=== PATIENT | female | born 1955 | race Caucasian/White ===

== ENCOUNTER 2019-05-04 11:51 | Inpatient (IN) ==
--- NOTE | 2019-05-04 12:44 | Emergency Department Note ---
ED Disposition Clinical Impression: Mesenteric ischemia Disposition: Admitted as Observation Condition on Discharge: Fair Instructions: DI for Nausea -- Adult, Nausea and Vomiting-Adult Additional Instructions: I discussed her CT findings with her primary care doctor Dr. Mackenzie Barrios and [facility] and Dr. Barrios tells me that this lady has been steadily going downhill over the last 5 to 6 months she has been seen by GI and had 2 EGDs and 2 colonoscopies that were non-diagnostic she has been getting sick every time she eats and having abdominal pain and now she comes to our emergency room with a lactic acid of 4.6 a white count of 15,[address] scan with IV contrast that shows narrowing of the ostium of the superior mesenteric artery and the celiac artery and she also has some evidence of colitis and this could be mesenteric i schemisaac I discussed this with Dr. Weinberg vascular surgeon at the [facility] in the [facility] is on diversion at this time and has 69 bedders in their emergency room Dr. Weinberg suggested that we try to get her admitted to this facility to get further hydration and if at any time during that process her abdominal pain gets worse they can transfer her to [facility] emergently for further evaluation from a vascular standpoint however if she gets better with hydration and antibiotics for this nonspecific colitis they may be able to avert or avoid any surgical intervention at this time Dr. Duffy is on line csr here for unassigned patients and he is admitting this patient for mesenteric ischemia and a consult has been placed with Dr. Griffin he agrees that this may very well be mesenteric ischemia but recommends going ahead and heparinizing the patient bolusing her with IV fluids and if she is better in the morning he may attempt to do a standing of her superior mesenteric artery Referrals: Mackenzie Barrios MD [Primary Care Provider] - Time of Disposition: 18:11 - Critical Care Critical Care Time: No Attestation: On 05/04/19, the high probability of a clinically significant, sudden or life threatening deterioration of the following system(s) required my full and direct attention, intervention and personal management. The time I documented below is in addition to time spent performing reported procedures but includes the following listed in this critical care notation. Medical Decision Making - Medical Records Medical records reviewed: Yes: I reviewed the patient's medical records. - Wilmer Inquiry Pt receiving controlled substance: No Wilmer was queried for this patient: No Vital Signs: 05/04/19 12:10 05/04/19 12:56 05/04/19 15:51 Temperature 97.6 F Temperature Source Oral Pulse Rate [Left Radial] 85 101 H 99 H Respiratory Rate 16 Blood Pressure [Right Arm] 151/75 H 139/69 139/79 Blood Pressure Mean [Right Arm] 100 92 99 Blood Pressure Source [Right Arm] Automatic Cuff Blood Pressure Position [Right Arm] Sitting Sitting Sitting 02 Sat by Pulse Oximetry 98 100 Oxygen Delivery Method Room Air - Lab Data Lab results reviewed: Yes: I reviewed the patient's lab results. Lab Results 05/04/19 13:07: WBC 15.1 H, RBC 4.47, Hgb 14.3, Hct 42.4, MCV 94.7, MCH 32.1 H, MCHC 33.8, RDW 14.1, Plt Count 349, MPV 8.1, Neut % (Auto) 88.8 H, Lymph % (Auto) 8.2 L, [place] % (Auto) 2.6, Eos % (Auto) 0.2, Baso % (Auto) 0.2, Neut # (Auto) 13.4 H, Lymph # (Auto) 1.2, [place] # (Auto) 0.4, Eos # (Auto) 0.0, Baso # (Auto) 0.0, Total Counted 100, Neutrophils % (Manual) 87 H, Band Neutrophils % 1.0, Lymphocytes % (Manual) 7 L, Monocytes % (Manual) 5, Platelet Estimate Normal, Poikilocytosis 1+, Acanthocytes (Spur) 1+ 05/04/19 13:40: Sodium 139, Potassium 3.1 L, Chloride 99, Carbon Dioxide 20 L, Anion Gap 23.1 H, BUN 5 L, Creatinine 1.11 H, Estimated Creat Clear 44, Es timated GFR 49 L, Est GFR ( Amer) 60, Glucose 59 L, Calcium 9.0, Total Bilirubin 0.7, AST 31, ALT 11 L, Alkaline Phosphatase 100, Total Protein 5.8 L, Albumin 2.7 L, Globulin 3.1, Albumin/Globulin Ratio 0.9 L 05/04/19 14:58: Lactate 4.6 H Result diagrams: 05/04/19 13:07 05/04/19 13:40 Orders (Tests/Meds): ED MEDICATIONS Generic Name Dose Route Start Last Admin Trade Name Freq PRN Reason Stop Dose Admin Sodium Chloride 620 mls @ 999 mls/hr 05/04/19 16:00 05/04/19 15:50 Sod Chlor 0.9% 1000ml Bag IV 05/04/19 16:37 999 mls/hr .Q38M BEV Administration Metronidazole 250 mg in 50 mls @ 100 mls/hr 05/04/19 17:55 05/04/19 18:09 Flagyl 250mg/50ml Ivpb IV 05/04/19 18:24 100 mls/hr ONCE ONE Administration Protocol Discontinued Medications Generic Name Dose Route Start Last Admin Trade Name Freq PRN Reason Stop Dose Admin Diatrizoate Meglum/Diatrizoate Sod 30 ml 05/04/19 12:38 05/04/19 13:32 Gastrografin 66%-10% 30ml PO 05/04/19 12:39 Not Given ONCE ONE Lactated Ringer's 1,000 mls @ 999 mls/hr 05/04/19 12:45 05/04/19 14:17 Lactated Ringer's 1000 Ml Bag IV 05/04/19 13:45 999 mls/hr .Q1H1M BEV Administration Ioversol 75 ml 05/04/19 15:32 05/04/19 15:33 Rad-Optiray 350 100ml Vial IV 05/04/19 15:33 75 ml ONCE ONE Administration Protocol ORDERS Category Date Time Status PT INR [Prothrombin Time INR] Stat Lab 05/04/19 18:05 Ordered PTT [Activated Partial Thrombo Time] Stat Lab 05/04/19 18:05 Ordered Urinalysis and Microscopic Stat Lab 05/04/19 12:30 Ordered - CT Data CT Scan: Abdomen, Pelvis Time Received: 16:[address] Reviewed: Yes: I have reviewed the patient's CT results, I discussed the CT results w/the radiologist, I have viewed the radiologist's interpretation Findings Narrative: IMPRESSION: 1. Hypodensity in the left hepatic lobe possibly due to focal fatty infiltration versus a liver lesion. Nonemergent MRI without and with contrast with in and out of phase imaging suggested for further evaluation. 2. Indeterminate left adrenal nodule which may also be better evaluated with MRI. 3. Left nephrolithiasis. 4. 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 The degree of stenosis is difficult to quantitate due to calcific plaque 5. Mild thickening of the colon which may be due to nondistention or mild colitis Abdominal Pain HPI - General Chief Complaint: Nausea/Vomiting/Diarrhea Stated Complaint: can't keep anything down,vomiting Time Seen by Provider: 05/04/19 12:22 Mode of Arrival: Ambulatory Limitations: No Limitations Description of Symptoms (Recalled from ER Triage Doc. by RN): to ed per pvt car with c/o generalized weakness, fatique, nausea, vomiting x 4-5 months pt states she had gallbladder removed 1 year ago and has had problems since. she has been seen several times in ed at [place] last was yesterday. seen pcp today told to come to ed. pt has been seen by [facility] tuesday. pt has had several "normal" edgs. pt states of a 50-60lb weight loss in 3-4 months. pt denies fever, chills, abd pain. - History of Present Illness HPI narrative: Patient is a 43-year-old white female who comes to the emergency room with compl aints of nausea vomiting abdominal pain decreased appetite and a weight loss of somewhere around 40 pounds over the last 4 to 5 months she says she has had an EGD and a colonoscopy done recently which were reportedly normal but she continues continues to have problems with not being able to eat and not able to keep anything down MD complaint: abdominal pain Onset (ago): month(s) Consistency: constant Location: diffuse - Related Data Allergies Allergy/AdvReac Type Severity Reaction Status Date / Time CODEINE Allergy Unknown NA-NAUSEA/V Uncoded 05/10/17 14:52 OMITING From BACTRIM Allergy Unknown NA-NAUSEA/V Uncoded 05/10/17 14:52 OMITING From MOTRIN Allergy Unknown NA-NAUSEA/V Uncoded 05/10/17 14:52 OMITING [facility] History - Hepatitis A Screen Drug use history?: No High risk sexual behaviors?: No History of sexually transmitted infection?: No Currently employed?: No Childcare worker?: No Do you have indoor plumbing?: Yes Do you have electricity?: Yes Attestation statement:: This patient has been screened for Hepatitis A risk factors. I have reviewed the patient's past medical history: Yes - Social History Smoking Status: Current every day smoker Tobacco Type: cigarettes # Packs/Day (cigarettes): 1 Alcohol Intake: never Occupational Status: other ROS Obtained: Yes All systems reviewed & no additional complaints - Constitutional Constitutional: Reports system reviewed and no additional complaints, except as docu, Reports as per HPI - Eyes Eyes: Reports system reviewed and no additional complaints, except as docu, Reports as per HPI - Gastrointestinal Gastrointestingal: Reports: system reviewed and no additional complaints, except as docu, as per HPI, nausea - Neurologic Neurologic: Reports system reviewed and no additional complaints, except as docu, Reports as per HPI Physical Exam - General General appearance: alert, in no apparent distress - Head Head exam: atraumatic - Eye Eye exam: Present: normal appearance - ENT ENT exam: Present: normal exam, mucous membranes dry - Neck Neck exam: Present: normal inspection - Chest Chest inspection: Present: normal inspection - Respiratory Respiratory exam: Present: normal lung sounds bilaterally - Cardiovascular Cardiovascular exam: Present: regular rate - Abdominal Exam Abdominal exam: Present: soft, tenderness (More in the suprapubic area), diminished bowel sounds - Neurological Exam Neurological exam: Present: alert, oriented X3 - Psychiatric Psychiatric exam: Present: normal affect, normal mood
[2019-05-04 13:17] LABS: Basophils % 0.2 % (0.1-2.0); Eosinophils % 0.2 % (0.1-12.0); Hematocrit 42.4 % (37.0-47.0); Hemoglobin 14.3 g/dL (12.2-16.2); Lymphocytes # 1.2 K/mm3 (0.7-4.5); Lymphocytes % 8.2 % (10-50); Mean Corpuscular HGB Conc 33.8 g/dL (31.8-35.4); Mean Corpuscular Volume 94.7 fl (81-99); Mean Platelet Volume 8.1 fl (7.4-10.4); Monocytes # 0.4 K/mm3 (0.1-1.0); Monocytes % 2.6 % (1.7-9.3); Neutrophils # 13.4 K/mm3 (1.8-7.8); Neutrophils % 88.8 % (37.0-80.0); Platelet Count 349 K/mm3 (142-424); Red Blood Count 4.47 M/mm3 (4.20-5.40); Red Cell Distribution Width 14.1 % (11.5-17.5); White Blood Count 15.1 K/mm3 (4.8-10.8)
[2019-05-04 13:34] LABS: Lymphocytes % 7 % (10-50); Monocytes % 5 % (2-9); Neutrophils % 87 % (42-76); Total Cells Counted 100
[2019-05-04 14:10] LABS: Albumin Level 2.7 gm/dL (3.4-5.0); Albumin/Globulin Ratio 0.9 (1.1-1.8); Anion Gap 23.1 mEq/L (5-15); Bilirubin,Total 0.7 mg/dL (0.2-1.0); Globulin 3.1 gm/dl (1.3-3.2); Total Protein,Serum 5.8 gm/dL (6.4-8.2)
[2019-05-04 18:25] LABS: Activated Partial Thrombo Time 27.5 seconds (23.6-34.0); INR 1.04 (0.9-1.1); Prothrombin Time 10.8 seconds (9.4-11.8)
--- NOTE | 2019-05-05 01:04 | Sepsis Event Note ---
[facility] Tissue Perfusion Eval Sepsis Re-Evaluation Performed: Yes Date Performed: 05/05/19 Time Performed: 01:03
[2019-05-05 03:15] LABS: Basophils % 0.1 % (0.1-2.0); Eosinophils % 0.1 % (0.1-12.0); Hematocrit 36.2 % (37.0-47.0); Hemoglobin 11.4 g/dL (12.2-16.2); Lymphocytes # 2.3 K/mm3 (0.7-4.5); Lymphocytes % 20.1 % (10-50); Mean Corpuscular HGB Conc 31.4 g/dL (31.8-35.4); Mean Corpuscular Volume 97.1 fl (81-99); Mean Platelet Volume 7.9 fl (7.4-10.4); Monocytes # 0.5 K/mm3 (0.1-1.0); Monocytes % 4.7 % (1.7-9.3); Neutrophils # 8.4 K/mm3 (1.8-7.8); Platelet Count 307 K/mm3 (142-424); Red Blood Count 3.72 M/mm3 (4.20-5.40); Red Cell Distribution Width 14.4 % (11.5-17.5); White Blood Count 11.3 K/mm3 (4.8-10.8)
[2019-05-05 03:28] LABS: Albumin/Globulin Ratio 0.8 (1.1-1.8); Anion Gap 21.9 mEq/L (5-15); Bilirubin,Total 0.5 mg/dL (0.2-1.0); Chol/HDL Ratio 3.3 (1-3.5); Globulin 2.4 gm/dl (1.3-3.2); Phosphorous 2.9 mg/dL (2.4-4.9); Total Protein,Serum 4.4 gm/dL (6.4-8.2)
[2019-05-05 03:33] LABS: Calcium 7.8 mg/dL (8.5-10.1)
[2019-05-05 03:34] LABS: INR 1.3 (0.9-1.1); Prothrombin Time 13.4 seconds (9.4-11.8)
--- NOTE | 2019-05-05 08:22 | History & Physical Report ---
*Admission Date: 05/04/19 *Chief complaint: Abdominal pain and vomiting *History of present illness: 63-year-old white female in extremely poor health related to diffuse atherosclerotic disease and heavy cigarette smoking, who also seems to have early onset dementia, who presented to the emergency department with vomiting, abdominal pain and a complaint of poor oral intake for the past several months. She has a history of abdominal pain with nausea and vomiting that is been treated by her primary care provider, a nurse practitioner in [place], as well as being admitted to the [facility] several weeks ago and undergoing EGD and colonoscopy and being placed on an unknown medication. However her reports she is been on but unable to tolerate any of these medications and continues to vomit after any meals or medication. Came to the emergency department. ER work-up revealed evidence of sepsis with elevated white count, heart rate and lactic acid. Found to have evidence of colitis on CT scan of the abdomen but also had evidence of mesenteric artery stenosis. Given her significant history of atherosclerotic cerebral disease and heart disease, she is admitted to hospital for treatment of sepsis, IV fluid administration, correction of her electrolyte imbalance and evaluation for possible SMA syndrome. Cardiology has been consulted. [facility] History I have reviewed the patient's past medical history: Yes Medical History: Reports:: Cerebrovascular Accident (Record deficit), Hyperlipidemia, Valvular Heart Disease (Follows with Dr. Najera in [place]) Denies:: Diabetes Mellitus Type 1, Diabetes Mellitus Type 2 *Have you ever received a pneumonia vaccine?: Yes *Have you received a flu vaccine this season?: Yes Comment:: Memory loss issues Other Surgeries: Yes: Cholecystectomy, Colonoscopy - *Social History Educational Level: Completed High School Smoking Status: Current every day smoker Tobacco Type: cigarettes # Packs/Day (cigarettes): 1 Alcohol Intake: never *Occupational Status:: disabled Housing: house Household Members: spouse *Travel in the last 8 weeks: None Family Hx:: No significant family history Review of Systems - Review of Systems Review of systems:: pertinent systems reviewed and negative unless documented below When I first examined patient she stated that she was "feeling better" but was holding an emesis bag. She does report that she feels like she could vomit and has vomited some this morning after some water intake. Otherwise she is an extremely poor historian and is unable to give a review of systems except for skin pain and nausea and vomiting. Her gives most of her history. Reports no new neurologic deficits. Reports no shortness of air or chest pain but she seems to have almost 0 functional status at the house. Seems to have significant memory loss. Meds Home Medications Medication Instructions Recorded Confirmed Type Unobtainable 05/04/19 05/04/19 History Allergies Allergy/AdvReac Type Severity Reaction Status Date / Time CODEINE Allergy Unknown NA-NAUSEA/V Uncoded 05/10/17 14:52 OMITING From BACTRIM Allergy Unknown NA-NAUSEA/V Uncoded 05/10/17 14:52 OMITING From MOTRIN Allergy Unknown NA-NAUSEA/V Uncoded 05/10/17 14:52 OMITING Exam Vital signs and Labs for Last 24 Hours: Temp Pulse Resp BP Pulse Ox 97.7 F 90 18 133/72 99 05/05/19 04:00 05/05/19 05:08 05/05/19 04:00 05/05/19 04:00 05/05/19 04:00 Laboratory Results - last 24 hr 05/04/19 13:07: WBC 15.1 H, RBC 4.47, Hgb 14.3, Hct 42.4, MCV 94.7, MCH 32.1 H, MCHC 33.8, RDW 14.1, Plt Count 349, MPV 8.1, Neut % (Auto) 88.8 H, Lymph % (Auto) 8.2 L, [place] % (Auto) 2.6, Eos % (Auto) 0.2, Baso % (Auto) 0.2, Neut # (Auto) 13.4 H, Lymph # (Auto) 1.2, [place] # (Auto) 0.4, Eos # (Auto) 0.0, Baso # (Auto) 0.0, Total Counted 100, Neutrophils % (Manual) 87 H, Band Neutrophils % 1.0, Lymphocytes % (Manual) 7 L, Monocytes % (Manual) 5, Platelet Estimate Normal, Poikilocytosis 1+, Acanthocytes (Spur) 1+ 05/04/19 13:40: Sodium 139, Potassium 3.1 L, Chloride 99, Carbon Dioxide 20 L, Anion Gap 23.1 H, BUN 5 L, Creatinine 1.11 H, Estimated Creat Clear 44, Estimated GFR 49 L, Est GFR ( Amer) 60, Glucose 59 L, Calcium 9.0, Total Bilirubin 0.7, AST 31, ALT 11 L, Alkaline Phosphatase 100, Total Protein 5.8 L, Albumin 2.7 L, Globulin 3.1, Albumin/Globulin Ratio 0.9 L 05/04/19 13:40: PT 10.8, INR 1.04, APTT 27.5 05/04/19 14:58: Lactate 4.6 H 05/04/19 18:45: Lactate 3.8 H 05/04/19 21:30: Lactate 2.7 H 05/05/19 03:00: WBC 11.3 H D, RBC 3.72 L, Hgb 11.4 L D, Hct 36.2 L, MCV 97.1, MCH 30.5, MCHC 31.4 L, RDW 14.4, Plt Count 307, MPV 7.9, Neut % (Auto) 75.0, Lymph % (Auto) 20.1, [place] % (Auto) 4.7, Eos % (Auto) 0.1, Baso % (Auto) 0.1, Neut # (Auto) 8.4 H, Lymph # (Auto) 2.3, [place] # (Auto) 0.5, Eos # (Auto) 0.0, Baso # (Auto) 0.0 05/05/19 03:00: PT 13.4 H, INR 1.30 H, APTT 275.0 H* D 05/05/19 03:00: Sodium 140, Potassium 2.9 L*, Chloride 103, Carbon Dioxide 18 L, Anion Gap 21.9 H, BUN 5 L, Creatinine 0.80 D, Estimated Creat Clear 47, Estimated GFR 72, Est GFR ( Amer) 87 D, Glucose 64 L, Calcium 7.8 L D, Phosphorus 2.9, Magnesium 1.4, Total Bilirubin 0.5, AST 25, ALT 10 L, Alkaline Phosphatase 77, Total Protein 4.4 L, Albumin 2.0 L D, Globulin 2.4, Albumin/Globulin Ratio 0.8 L, Triglycerides 86, Cholesterol 91 L, LDL Cholesterol 46, VLDL Cholesterol 17, HDL Cholesterol 28 L, Cholesterol/HDL Ratio 3.3 05/05/19 03:00: Lactate 1.3 05/05/19 07:30: APTT 37.5 H D I & O for Last 24 hours: Intake & Output 05/02/19 05/03/19 05/04/19 05/05/19 11:59 11:59 11:59 11:59 Intake Total 3223 / 3223 Output Total 200 / 200 Balance 3023 / 3023 Weight 116 lb 4 oz Narrative: Patient is in bed holding the emesis bag. Appears older than her stated age. Is unable to give history and is disoriented to time and place. Minimal right-sided facial drooping. No evidence of strength deficit in either side of her skeletal muscles. Heart rate regular. Holosystolic murmur noted. Abdomen soft. Some tenderness but no rebound or guarding. Lungs have smoker's rhonchi. Extremities have age-related skin changes and bruising. She is tender in her shins but no significant edema. IV in the right foot noted. Assessment and Plan (1) Recurrent abdominal pain Current visit: Yes Status: Acute Category: Medical Code(s): R10.9 - Unspecified abdominal pain Symptoms consistent with mesenteric ischemia. Patient has had EGD and colonoscopy-we will try to obtain these records. Cardiology consult to evaluate for catheter-based evaluation of her SMA anatomy. (2) History of stroke Current visit: Yes Status: Acute Category: Medical Code(s): Z86.73 - Personal history of transient ischemic attack (TIA), and cerebral infarction without residual deficits Significant vascular disease. Watch blood pressure. Record deficit regarding her home medications. (3) Valvular heart disease Current visit: Yes Status: Acute Category: Medical Code(s): I38 - Endocarditis, valve unspecified Record deficit, we will try to obtain records today. (4) Personal history of nicotine dependence Current visit: Yes Status: Acute Category: Medical Code(s): Z87.891 - Personal history of nicotine dependence Patient has no interest in quitting. Complicates all aspects of her care (5) Sepsis Current visit: Yes Status: Acute Category: Medical Code(s): A41.9 - Sepsis, unspecified organism Improving, possible source would be her colitis issues. Lactic improving. Vital signs improving, white count improving (6) Hypokalemia Current visit: Yes Status: Acute Category: Medical Code(s): E87.6 - Hypokalemia Replace electrolytes today intravenously. (7) Hypocalcemia Current visit: Yes Status: Acute Category: Medical Code(s): E83.51 - Hypocalcemia (8) Mesenteric ischemia Current visit: Yes Status: Acute Category: Medical Code(s): K55.9 - Vascular disorder of intestine, unspecified See notes above.
--- NOTE | 2019-05-05 11:45 | Pharmacy Consult Notes ---
[facility] Pharmacy VTE Monitoring - Patient Demographics Admission date: 05/05/19 Report Date: 05/05/19 Time: 11:44 Allergies/Adverse Reactions: Patient Allergies codeine Allergy (Verified 05/05/19 11:18) Nausea ibuprofen [From Motrin] Allergy (Verified 05/05/19 11:18) Nausea sulfamethoxazole [From Bactrim] Allergy (Verified 05/05/19 11:18) Nausea trimethoprim [From Bactrim] Allergy (Verified 05/05/19 11:18) Nausea Height: 1.65 m Weight: 52.73 kg Patient Problems: Current Active Problems Mesenteric ischemia (Acute) Recurrent abdominal pain (Acute) History of stroke (Acute) Valvular heart disease (Acute) Personal history of nicotine dependence (Acute) Sepsis (Acute) Hypokalemia (Acute) Hypocalcemia (Acute) - VTE Risk Labs: VTE Related Lab Results Hgb 11.4 g/dL (12.2-16.2) L D 05/05/19 03:00 Hct 36.2 % (37.0-47.0) L 05/05/19 03:00 Plt Count 307 K/mm3 (142-424) 05/05/19 03:00 PT 13.4 seconds (9.4-11.8) H 05/05/19 03:00 INR 1.30 (0.9-1.1) H 05/05/19 03:00 APTT 37.5 seconds (23.6-34.0) H D 05/05/19 07:30 BUN 5 mg/dL (7-18) L 05/05/19 03:00 Creatinine 0.80 mg/dL (0.55-1.02) D 05/05/19 03:00 Estimated Creat Clear 47 mL/min (50-200) 05/05/19 03:00 Was VTE Risk Assessment Performed: Yes VTE Score: 6 VTE Risk Level: Moderate Risk - Prophylaxis Types of VTE Prophylaxis: Pharmacological Location of Applied Device: Refused Pharmacologic Type: Heparin (HEPARIN DRIP ORDERED AT THIS TIME.)
--- NOTE | 2019-05-05 16:18 | Electrocardiograph Report ---
APPROVED REPORT Exam: Resting ECG HR:94 bpm ECG Measurements Heart Rate 94 AXES MD 128 P 84 QRSd 96 QRS -75 QT 382 T91 QTc 477 <Conclusion> Normal sinus rhythm Pulmonary disease pattern Left anterior fascicular block Nonspecific ST and T wave abnormality Prolonged QT Abnormal ECG Electronically signed by : Jake Franklin, 05/05/2019 16:18:36
[2019-05-05 20:39] LABS: Anion Gap 20.6 mEq/L (5-15); Calcium 7.8 mg/dL (8.5-10.1)
[2019-05-06 06:23] LABS: Basophils % 0.3 % (0.1-2.0); Eosinophils % 0.4 % (0.1-12.0); Hematocrit 32.8 % (37.0-47.0); Hemoglobin 10.9 g/dL (12.2-16.2); Lymphocytes # 2.6 K/mm3 (0.7-4.5); Lymphocytes % 31.9 % (10-50); Mean Corpuscular HGB Conc 33.2 g/dL (31.8-35.4); Mean Corpuscular Volume 95.6 fl (81-99); Mean Platelet Volume 7.3 fl (7.4-10.4); Monocytes # 0.3 K/mm3 (0.1-1.0); Monocytes % 3.7 % (1.7-9.3); Neutrophils # 5.1 K/mm3 (1.8-7.8); Neutrophils % 63.6 % (37.0-80.0); Platelet Count 236 K/mm3 (142-424); Red Blood Count 3.44 M/mm3 (4.20-5.40); Red Cell Distribution Width 14.3 % (11.5-17.5); White Blood Count 8.1 K/mm3 (4.8-10.8)
[2019-05-06 06:31] LABS: Anion Gap 20.1 mEq/L (5-15); Calcium 7.4 mg/dL (8.5-10.1)
--- NOTE | 2019-05-06 08:45 | Progress Note ---
Internal Medicine - PN: Subj *Date: 05/06/19 *Time: 08:42 Interval history: Patient did not sleep well but notes that her belly pain is less. Otherwise feels comfortable and is breathing well. Exam Vital signs and Labs for Last 24 Hours: Temp Pulse Resp BP Pulse Ox 97.7 F 82 18 139/80 100 05/06/19 08:00 05/06/19 08:00 05/06/19 08:00 05/06/19 08:00 05/06/19 08:00 Laboratory Results - last 24 hr 05/05/19 16:20: APTT 192.8 H* D 05/05/19 20:25: Sodium 138, Potassium 3.6 D, Chloride 102, Carbon Dioxide 19 L, Anion Gap 20.6 H, BUN 5 L, Creatinine 0.78, Estimated Creat Clear 47, Estimated GFR 74, Est GFR ( Amer) 90, Glucose 65 L, Calcium 7.8 L 05/05/19 20:25: APTT 37.3 H D 05/06/19 01:05: APTT 42.2 H D 05/06/19 06:05: WBC 8.1 D, RBC 3.44 L, Hgb 10.9 L, Hct 32.8 L, MCV 95.6, MCH 31.7 H, MCHC 33.2, RDW 14.3, Plt Count 236, MPV 7.3 L, Neut % (Auto) 63.6, Lymph % (Auto) 31.9, [place] % (Auto) 3.7, Eos % (Auto) 0.4, Baso % (Auto) 0.3, Neut # (Auto) 5.1, Lymph # (Auto) 2.6, [place] # (Auto) 0.3, Eos # (Auto) 0.0, Baso # (Auto) 0.0 05/06/19 06:05: Sodium 134 L, Potassium 3.1 L, Chloride 98, Carbon Dioxide 19 L, Anion Gap 20.1 H, BUN 4 L, Creatinine 0.68, Estimated Creat Clear 47, Estimated GFR 87, Est GFR ( Amer) 105, Glucose 80 D, Calcium 7.4 L 05/06/19 06:05: Lactate 0.9 05/06/19 06:05: APTT 50.1 H* D I & O for Last 24 hours: Intake & Output 05/03/19 05/04/19 05/05/19 05/06/19 11:59 11:59 11:59 11:59 Intake Total 3523 / 3523 4201 / 4201 Output Total 200 / 200 500 / 500 Balance 3323 / 3323 3701 / 3701 Weight 116 lb 4 oz 116 lb 3.996 oz Narrative: Patient appears well. Oropharynx clear, no JVD. Breathing easily. Heart rate regular, lungs clear. No neurologic deficits Abdomen soft and nontender. No edema. Assessment and Plan (1) Recurrent abdominal pain Current visit: Yes Status: Acute Category: Medical Code(s): R10.9 - Unspecified abdominal pain (2) History of stroke Current visit: Yes Status: Acute Category: Medical Code(s): Z86.73 - Personal history of transient ischemic attack (TIA), and cerebral infarction without residual deficits (3) Valvular heart disease Current visit: Yes Status: Acute Category: Medical Code(s): I38 - Endocarditis, valve unspecified (4) Personal history of nicotine dependence Current visit: Yes Status: Acute Category: Medical Code(s): Z87.891 - Pe rsonal history of nicotine dependence (5) Sepsis Current visit: Yes Status: Acute Category: Medical Code(s): A41.9 - Sepsis, unspecified organism (6) Hypokalemia Current visit: Yes Status: Acute Category: Medical Code(s): E87.6 - Hypokalemia (7) Hypocalcemia Current visit: Yes Status: Acute Category: Medical Code(s): E83.51 - Hypocalcemia (8) Mesenteric ischemia Current visit: Yes Status: Acute Category: Medical Code(s): K55.9 - Vascular disorder of intestine, unspecified - Assessment and plan all Dx Assessment and Plan for all problems:: Records have been obtained from [facility]. I reviewed these. The patient has significant peripheral vascular disease. Highly likely that SMA is indeed calcified. Lactic acid is normal. Consult with cardiology for possible cath today
--- NOTE | 2019-05-06 14:24 | Pharmacy Consult Notes ---
[facility] Pharmacy Heparin Dosing - Demographic Data Admission date:: 05/04/19 Date: 05/04/19 Time: 16:00 Allergies/Adverse Reactions: Allergies Allergy/AdvReac Type Severity Reaction Status Date / Time codeine Allergy Nausea Verified 05/05/19 11:18 ibuprofen [From Motrin] Allergy Nausea Verified 05/05/19 11:18 sulfamethoxazole Allergy Nausea Verified 05/05/19 11:18 [From Bactrim] trimethoprim [From Bactrim] Allergy Nausea Verified 05/05/19 11:18 Height: 1.65 m Weight: 52.7 kg - Indication Medication therapy:: Heparin Patient Problems: Current Active Problems Mesenteric ischemia (Acute) Recurrent abdominal pain (Acute) History of stroke (Acute) Valvular heart disease (Acute) Personal history of nicotine dependence (Acute) Sepsis (Acute) Hypokalemia (Acute) Hypocalcemia (Acute) CVA?: No Bleeding problem?: No Kidney disease?: No [place]?: No Desired PTT range:: 50-70 seconds - Labs Anticoagulation Lab Results:: 05/06/19 06:05 Hgb 10.9 L Hct 32.8 L Plt Count 236 - Monitoring Dose Monitor 1 Date: 05/03/19 Time: 15:59 PTT Result:: 27.5 Infusion Rate:: 18 ML/HR (900 UNITS/HR) 3500 UNIT BOLUS IV Dose Monitor 2 Date: 05/05/19 Time: 04:00 PTT Result:: 275.0 Infusion Rate:: HOLD Dose Monitor 3 Date: 05/05/19 Time: 07:30 PTT Result:: 37.5 Infusion Rate:: HEPARIN 12 ML/HR (600 UNITS/HR); HEPARIN 3200 UNITS IV BOLUS Dose Monitor 4 Date: 05/05/19 Time: 16:00 PTT Result:: 192.8 Infusion Rate:: HOLD Dose Monitor 5 Date: 05/05/19 Time: 20:25 PTT Result:: 37.8 Infusion Rate:: HEPARIN 8 ML/HR, NO BOLUS PATIENT IS VERY SENSITIVE TO HEPARIN BOLUSING. Dose Monitor 6 Date: 05/06/19 Time: 01:05 PTT Result:: 42.2 Infusion Rate:: HEPARIN 8.5 ML/HR (425 UNITS/HR), NO BOLUS, PTT IMPROVING. Dose Monitor 7 Date: 05/06/19 Time: 06:05 PTT Result:: 50.1 Infusion Rate:: HEPARIN 8.5 ML/HR (425 UNITS/HR) - Core Measures Is INR > or = 2 at discharge?: No Most Recent Labs:: Laboratory Results - last 24 hr 05/05/19 16:20: APTT 192.8 H* D 05/05/19 20:25: Sodium 138, Potassium 3.6 D, Chloride 102, Carbon Dioxide 19 L, Anion Gap 20.6 H, BUN 5 L, Creatinine 0.78, Estimated Creat Clear 47, Estimated GFR 74, Est GFR ( Amer) 90, Glucose 65 L, Calcium 7.8 L 05/05/19 20:25: APTT 37.3 H D 05/06/19 01:05: APTT 42.2 H D 05/06/19 06:05: WBC 8.1 D, RBC 3.44 L, Hgb 10.9 L, Hct 32.8 L, MCV 95.6, MCH 31.7 H, MCHC 33.2, RDW 14.3, Plt Count 236, MPV 7.3 L, Neut % (Auto) 63.6, Lymph % (Auto) 31.9, [place] % (Auto) 3.7, Eos % (Auto) 0.4, Baso % (Auto) 0.3, Neut # (Auto) 5.1, Lymph # (Auto) 2.6, [place] # (Auto) 0.3, Eos # (Auto) 0.0, Baso # (Auto) 0.0 05/06/19 06:05: Sodium 134 L, Potassium 3.1 L, Chloride 98, Carbon Dioxide 19 L, Anion Gap 20.1 H, BUN 4 L, Creatinine 0.68, Estimated Creat Clear 47, Estimated GFR 87, Est GFR ( Amer) 105, Glucose 80 D, Calcium 7.4 L 05/06/19 06:05: Lactate 0.9 05/06/19 06:05: APTT 50.1 H* D 05/06/19 13:39: Activated Clotting Time 143 H 05/06/19 14:15: Activated Clotting Time 262 H* D Were Heparin and Warfarin started on the same day?: No Comments:: HEPARIN DRIP STOPPED POST CATH IN [employer]ESSIONAL.
--- NOTE | 2019-05-07 07:03 | Consult Report ---
History of Present Illness Consult date: 05/07/19 Requesting physician: Eleno Weller Chief complaint: vomiting, abdominal pain Additional Medical History:: 1. Tobacco use, 1.5 ppd for >40 yrs 2. History of CVA X 2 in 2013, on ASA since then 3. Early dementia 4. severe superior mesenteric artery stenosis, angiogram, 04/2019 A. Mesenteric ischemia, Superior mesenteric artery atherosclerosis, Celiac artery atherosclerosis, Lactic acidosis (lactic acid 4.6), 55 pound weight loss, Informed consent was obtained prior to the procedure. Estimated Blood Loss: less than 10ml TECHNIQUE 1% lidocaine used to anesthetize the right anterior aspect of the right wrist. The right radial artery was accessed via the Salinger technique and a 6 Nepali hydrophilic sheath was placed in the right radial artery. A PV multi-curve catheter was placed in the abdominal aorta and abdominal aortography was performed. Following this therapeutic heparin was administered. The PV multi-curve was used to selectively intubate the celiac artery. Using a wire exchange technique the PV multi-curve catheter was removed and an Amplatz left guide catheter was used to selectively intubate both the celiac artery and the superior mesenteric artery. The catheter appeared to dissect a proximal vessel. Attempts to cannulate the true lumen were unsuccessful. At the end of the procedure it was decided to terminate the procedure due to copious amounts of contrast. The apparatus was removed the sheath was removed good hemostasis was achieved using TR banding patient was transferred to the postop holding her in stable condition ANGIOGRAPHIC RESULTS The suprarenal abdominal aorta has mild atheromatous plaque while the infrarenal abdominal aorta has moderate atheromatous calcification and plaque. The superior mesenteric artery has an ostial greater than 80% stenosis. The ostium of the celiac artery could has ostial proximal 50% stenoses. 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 Continue IV hydration. Because of patient's 55 pound weight loss and lactic acidosis I would recommend patient be transferred to [facility] for further consideration of SMA stenting. Patient may also require a bowel resection based on the lactic acidosis. I would recommend surgery consultation. Electronically signed by : Ever Griffin, 05/06/2019 14:10:29 History of present illness: 63-year-old white female in extremely poor health related to diffuse atherosclerotic disease and heavy cigarette smoking, who also seems to have early onset dementia, who presented to the emergency department with vomiting, abdominal pain and a complaint of poor oral intake for the past several months. She has a history of abdominal pain with nausea and vomiting that is been treated by her primary care provider, a nurse practitioner in [place], as well as being admitted to the [facility] several weeks ago and undergoing EGD and colonoscopy and being placed on an unknown medication. However her reports she is been on but unable to tolerate any of these medications and continues to vomit after any meals or medication. Came to the emergency department. ER work-up revealed evidence of sepsis with elevated white count, heart rate and lactic acid. Found to have evidence of colitis on CT scan of the abdomen but also had evidence of mesenteric artery stenosis. Given her significant history of atherosclerotic cerebral disease and heart disease, she is admitted to hospital for treatment of sepsis, IV fluid administration, correction of her electrolyte imbalance and evaluation for possible SMA syndrome. Cardiology has been consulted. The above per Dr. Weller Pt did undergo angiogram of the mesenteric arteries with severe stenosis of the superior mesenteric artery stenosis with moderate [id number] disease in the celiac artery. Dissection of a proximal vessel did occur with unsuccessful attempts to cannulate the true lumen. The procedure was aborted due to amount of contrast used. Recommendations for surgical consult at tertiary center. This AM she is in bed in [facility]. Denies abdominal pain or chest pain. [facility] History Medical History: Reports:: Cerebrovascular Accident (Record deficit), Hyperlipidemia, Valvular Heart Disease (Follows with Dr. Najera in [place]) Denies:: Diabetes Mellitus Type 1, Diabetes Mellitus Type 2 *Have you ever received a pneumonia vaccine?: Yes *Have you received a flu vaccine this season?: Yes Other Surgeries: Yes: Cholecystectomy, Colonoscopy - *Social History Educational Level: Completed High School Smoking Status: Current every day smoker Tobacco Type: cigarettes # Packs/Day (cigarettes): 1 Alcohol Intake: never *Occupational Status:: disabled Housing: house Household Members: spouse *Travel in the last 8 weeks: None Family Hx:: No significant family history Meds Home Medications Medication Instructions Recorded Confirmed Type Ferrous Sulfate [Ferrous Sulfate 325 mg PO BID 05/05/19 05/05/19 History 325mg Tablet] Pantoprazole Sodium [Protonix 40mg 40 mg PO DAILY 05/05/19 05/05/19 History tablet] Potassium Chloride [Klor-con 20 20 meq PO DAILY 05/05/19 05/05/19 History mEq tablet] Allergies Allergy/AdvReac Type Severity Reaction Status Date / Time codeine Allergy Nausea Verified 05/05/19 11:18 ibuprofen [From Motrin] Allergy Nausea Verified 05/05/19 11:18 sulfamethoxazole Allergy Nausea Verified 05/05/19 11:18 [From Bactrim] trimethoprim [From Bactrim] Allergy Nausea Verified 05/05/19 11:18 Review of Systems - Review of Systems Review of systems:: pertinent systems reviewed and negative unless documented below - Constitutional Reports weight loss Comments: >50 wt loss in last 3 months - *Cardiovascular Denies chest pain, Denies shortness of breath - *Respiratory Denies shortness of breath - *Gastrointestinal Reports abdominal pain, Reports nausea, Reports vomiting - *Genitourinary Denies blood in urine - *Musculoskeletal Denies joint pain, Denies back pain - *Neurologic Reports memory loss, Reports weakness Exam Vital signs and Labs for Last 24 Hours: Temp Pulse Resp BP Pulse Ox 97.5 F L 87 16 162/81 H 100 05/07/19 03:26 05/07/19 03:26 05/07/19 03:26 05/07/19 03:26 05/07/19 03:26 Laboratory Results - last 24 hr 05/06/19 13:39: Activated Clotting Time 143 H 05/06/19 14:15: Activated Clotting Time 262 H* D I & O for Last 24 hours: Intake & Output 05/04/19 05/05/19 05/06/19 05/07/19 11:59 11:59 11:59 11:59 Intake Total 3523 / 3523 4401 / 4401 4644 / 4644 Output Total 200 / 200 500 / 500 2325 / 2325 Balance 3323 / 3323 3901 / 3901 2319 / 2319 Weight 116 lb 4 oz 116 lb 3.996 oz 131 lb 5 oz Microbiology Reports for the Last 24 Hours: Microbiology 05/04/19 23:25 Blood Blood Culture - Preliminary NO GROWTH AFTER 48 HOURS 05/04/19 23:25 Blood Blood Culture - Preliminary NO GROWTH AFTER 48 HOURS - *Routine HEENT Exam Head: Present: normocephalic Eye: Present: EOMI, PERRL ENT: Present: mucous membranes moist - *Routine Neck Exam Present: supple. Absent: JVD, carotid bruit - *Routine Respiratory Exam Present: rhonchi, diminished air movement. Absent: accessory muscle use, rales, wheezes - *Routine Cardiovascular Exam Present: RRR. Absent: murmur, gallop, rubs - *Routine Abdominal Exam Present: soft. Absent: tenderness, distended, guarding - *Routine Extremities Exam Absent: edema, calf tenderness - *Routine Neurological Exam Present: alert, oriented X3, moving all extremities Assessment and Plan (1) Recurrent abdominal pain Current visit: Yes Status: Acute Category: Medical Code(s): R10.9 - Unspecified abdominal pain (2) History of stroke Current visit: Yes Status: Acute Category: Medical Code(s): Z86.73 - Personal history of transient ischemic attack (TIA), and cerebral infarction without residual deficits (3) Valvular heart disease Current visit: Yes Status: Acute Category: Medical Code(s): I38 - Endocarditis, valve unspecified (4) Personal history of nicotine dependence Current visit: Yes Status: Acute Category: Medical Code(s): Z87.891 - Personal history of nicotine dependence (5) Sepsis Current visit: Yes Status: Acute Category: Medical Code(s): A41.9 - Sepsis, unspecified organism (6) Hypokalemia Current visit: Yes Status: Acute Category: Medical Code(s): E87.6 - Hypokalemia (7) Hypocalcemia Current visit: Yes Status: Acute Category: Medical Code(s): E83.51 - Hypocalcemia (8) Mesenteric ischemia Current visit: Yes Status: Acute Category: Medical Code(s): K55.9 - Vascular disorder of intestine, unspecified (9) Mesenteric artery stenosis Current visit: Yes Status: Acute Category: Medical Code(s): K55.1 - Chronic vascular disorders of intestine - Assessment and plan all Dx Assessment and Plan for all problems:: 1. Continue IV hydration (lactic acid back to normal, renal functions normal) 2. Mild anemia, likely due to hydration 3. hypokalemia, add replacement to IVF 4. Awaiting transfer for surgical consult
--- NOTE | 2019-05-07 08:59 | Progress Note ---
Internal Medicine - PN: Subj *Date: 05/07/19 *Time: 08:58 Interval history: Overnight patient did fairly well. No change in vital signs or overall condition. This morning we have attempted to feed her a low-fat diet but her reports that even a couple of bites of food caused significant nausea. Exam Vital signs and Labs for Last 24 Hours: Temp Pulse Resp BP Pulse Ox 97.4 F L 81 18 156/87 H 98 05/07/19 08:00 05/07/19 08:00 05/07/19 08:00 05/07/19 08:00 05/07/19 08:00 Laboratory Results - last 24 hr 05/06/19 13:39: Activated Clotting Time 143 H 05/06/19 14:15: Activated Clotting Time 262 H* D I & O for Last 24 hours: Intake & Output 05/04/19 05/05/19 05/06/19 05/07/19 11:59 11:59 11:59 11:59 Intake Total 3523 / 3523 4401 / 4401 4744 / 4744 Output Total 200 / 200 500 / 500 2325 / 2325 Balance 3323 / 3323 3901 / 3901 2419 / 2419 Weight 116 lb 4 oz 116 lb 3.996 oz 131 lb 5 oz Microbiology Reports for the Last 24 Hours: Microbiology 05/04/19 23:25 Blood Blood Culture - Preliminary NO GROWTH AFTER 48 HOURS 05/04/19 23:25 Blood Blood Culture - Preliminary NO GROWTH AFTER 48 HOURS Narrative: Heart rate regular. Oropharynx clear and moist. No JVD. Abdomen soft and nontender. No edema or clubbing. Neurologic exam nonfocal Assessment and Plan (1) Recurrent abdominal pain Current visit: Yes Status: Acute Category: Medical Code(s): R10.9 - Unspecified abdominal pain (2) History of stroke Current visit: Yes Status: Acute Category: Medical Code(s): Z86.73 - Personal history of transient ischemic attack (TIA), and cerebral infarction without residual deficits (3) Valvular heart disease Current visit: Yes Status: Acute Category: Medical Code(s): I38 - Endocarditis, valve unspecified (4) Personal history of nicotine dependence Current visit: Yes Status: Acute Category: Medical Code(s): Z87.891 - Personal history of nicotine dependence (5) Sepsis Current visit: Yes Status: Acute Category: Medical Code(s): A41.9 - Sepsis, unspecified organism (6) Hypokalemia Current visit: Yes Status: Acute Category: Medical Code(s): E87.6 - Hypokalemia (7) Hypocalcemia Current visit: Yes Status: Acute Category: Medical Code(s): E83.51 - Hypocalcemia (8) Mesenteric ischemia Current visit: Yes Status: Acute Category: Medical Code(s): K55.9 - Vascular disorder of intestine, unspecified (9) Mesenteric artery stenosis Current visit: Yes Status: Acute Category: Medical Code(s): K55.1 - Chronic vascular disorders of intestine - Assessment and plan all Dx Assessment and Plan for all problems:: Significant symptomatology most likely related to severe mesenteric ischemia issues. I discussed the case with vascular surgery at yesterday who accepted the patient in transfer. We will continue IV fluids and electrolyte support while waiting a bed. We have challenged patient this morning with food but this failed. Continue replacement of electrolytes for hypocalcemia and hypokalemia.
[2019-05-08 06:59] LABS: Anion Gap 14.6 mEq/L (5-15)
--- NOTE | 2019-05-08 08:03 | Progress Note ---
Internal Medicine - PN: Subj *Date: 05/08/19 *Time: 08:02 Interval history: Patient is about the same. Continues to have pain with eating. At baseline has no pain. Exam Vital signs and Labs for Last 24 Hours: Temp Pulse Resp BP Pulse Ox 98.3 F 94 H 17 155/78 H 97 05/08/19 07:57 05/08/19 07:57 05/08/19 07:57 05/08/19 07:57 05/08/19 07:57 Laboratory Results - last 24 hr 05/08/19 06:30: Sodium 130 L, Potassium 2.6 L*, Chloride 94 L, Carbon Dioxide 24 D, Anion Gap 14.6, BUN 2 L D, Creatinine 0.57, Estimated Creat Clear 53, Estimated GFR 106, Est GFR ( Amer) 129 D, Glucose 100, Calcium 8.0 L I & O for Last 24 hours: Intake & Output 05/05/19 05/06/19 05/07/19 05/08/19 11:59 11:59 11:59 11:59 Intake Total 3523 / 3523 4401 / 4401 5164 / 5164 3731 / 3731 Output Total 200 / 200 500 / 500 2325 / 2325 1974 / 1974 Balance 3323 / 3323 3901 / 3901 2839 / 2839 1756 / 1756 Weight 116 lb 4 oz 116 lb 3.996 oz 131 lb 5 oz 132 lb 8 oz Narrative: Abdomen soft, minimally tender. Lungs clear. Heart rate regular, oropharynx moist. ENT exam otherwise clear. Neurologic exam unchanged. No skin breakdown. Assessment and Plan (1) Recurrent abdominal pain Current visit: Yes Status: Acute Category: Medical Code(s): R10.9 - Unspecified abdominal pain (2) History of stroke Current visit: Yes Status: Acute Category: Medical Code(s): Z86.73 - Personal history of transient ischemic attack (TIA), and cerebral infarction without residual deficits (3) Valvular heart disease Current visit: Yes Status: Acute Category: Medical Code(s): I38 - Endocarditis, valve unspecified (4) Personal history of nicotine dependence Current visit: Yes Status: Acute Category: Medical Code(s): Z87.891 - Personal history of nicotine dependence (5) Sepsis Current visit: Yes Status: Acute Category: Medical Code(s): A41.9 - Sepsis, unspecified organism (6) Hypokalemia Current visit: Yes Status: Acute Category: Medical Code(s): E87.6 - Hypokalemia (7) Hypocalcemia Current visit: Yes Status: Acute Category: Medical Code(s): E83.51 - Hypocalcemia (8) Mesenteric ischemia Current visit: Yes Status: Acute Category: Medical Code(s): K55.9 - Vascular disorder of intestine, unspecified (9) Mesenteric artery stenosis Current visit: Yes Status: Acute Category: Medical Code(s): K55.1 - Chronic vascular disorders of intestine - Assessment and plan all Dx Assessment and Plan for all problems:: Overall patient stable. Awaiting transfer for mesenteric issues.
--- NOTE | 2019-05-08 09:22 | Progress Note ---
Internal Medicine - PN: Subj *Date: 05/08/19 *Time: 09:21 Exam Vital signs and Labs for Last 24 Hours: Temp Pulse Resp BP Pulse Ox 98.3 F 94 H 17 155/78 H 97 05/08/19 07:57 05/08/19 07:57 05/08/19 07:57 05/08/19 07:57 05/08/19 07:57 Laboratory Results - last 24 hr 05/08/19 06:30: Sodium 130 L, Potassium 2.6 L*, Chloride 94 L, Carbon Dioxide 24 D, Anion Gap 14.6, BUN 2 L D, Creatinine 0.57, Estimated Creat Clear 53, Estimated GFR 106, Est GFR ( Amer) 129 D, Glucose 100, Calcium 8.0 L I & O for Last 24 hours: Intake & Output 05/05/19 05/06/19 05/07/19 05/08/19 23:59 23:59 23:59 23:59 Intake Total 4134 / 4134 3762 / 3762 5709 / 5709 1414 / 1414 Output Total 200 / 700 1275 / 2275 3525 / 3525 Balance 3934 / 3434 2487 / 1487 2184 / 2184 1414 / 1414 Weight 52.73 kg 52.7 kg 59.562 kg 60.101 kg Assessment and Plan (1) Recurrent abdominal pain Current visit: Yes Status: Acute Category: Medical Code(s): R10.9 - Unspecified abdominal pain (2) History of stroke Current visit: Yes Status: Acute Category: Medical Code(s): Z86.73 - Personal history of transient ischemic attack (TIA), and cerebral infarction without residual deficits (3) Valvular heart disease Current visit: Yes Status: Acute Category: Medical Code(s): I38 - Endocarditis, valve unspecified (4) Personal history of nicotine dependence Current visit: Yes Status: Acute Category: Medical Code(s): Z87.891 - Personal history of nicotine dependence (5) Sepsis Current visit: Yes Status: Acute Category: Medical Code(s): A41.9 - Sepsis, unspecified organism (6) Hypokalemia Current visit: Yes Status: Acute Category: Medical Code(s): E87.6 - Hypokalemia (7) Hypocalcemia Current visit: Yes Status: Acute Category: Medical Code(s): E83.51 - Hypocalcemia (8) Mesenteric ischemia Current visit: Yes Status: Acute Category: Medical Code(s): K55.9 - Vascular disorder of intestine, unspecified (9) Mesenteric artery stenosis Current visit: Yes Status: Acute Category: Medical Code(s): K55.1 - Chronic vascular disorders of intestine The patient's infection will respond to the chosen ABx?: Yes Is the patient receiving the right drug, dose, and route?: Yes Could a more targeted ABx be ordered?: No (AWAITING TRANSFER TO )
== END 2019-05-08 17:32 | disposition short-term general hospital (02) | DRG 395 ==
LOC: 2ND 11:51 → ER 11:51 → 2ND 20:03 → OBSVTOIN 20:03
PROVIDERS: ADMIT Internal Medicine Adolescent Medicine; ATTEND Internal Medicine Adolescent Medicine
CPT/HCPCS: 36245; 36415; 71020; 71046; 71260; 74177; 75726; 80048; 80053; 80061; 83605; 83735; 84100; 85007; 85025; 85347; 85610; 85730; 87040; 93005; 96365; 96366; 96367; 99152; 99153; 99284; C1725; C1769; J1644; J1956; J2405; Q9966; Q9967; S0030

== ENCOUNTER 2025-04-10 10:49 | Day surgery (SDC) | payer MEDICARE, SELFPAY ==
--- NOTE | 2025-04-05 12:05 | EXP.HP ---
History of Present Illness *Admission Date: 04/10/25 *History of present illness: Mrs. Powers is a 69-year-old female who is here for diagnostic EGD. She reports epigastric abdominal pain, belching, bloating, early satiety and loss of appetite. She has lost around 50 pounds. A lot of this has occurred over the last several years. 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 She was transferred to the [facility] who repeated imaging and this showed widely patent SMA and celiac artery. She had a negative EGD and colonoscopy. Her family did take her to [facility] where she was admitted with vomiting and severe weight loss and she had a gastrostomy tube placed. Her last endoscopy and colonoscopy may have been in [place] around 3 years ago. The examination is deemed medically necessary for diagnostic EGD. The patient has been seen, interviewed and examined prior to the procedure by both myself and the anesthesia provider. [facility] Disclaimer: The information contained in this section may have been updated after the patient was seen, as this information can be updated by other users. Medical History Leaky heart valve Surgical History History of cholecystectomy Family History Other No significant family history Social History (Updated 04/10/25 @ 12:52 by Jeffrey Canales CRNA) Smoking Status: Current every day smoker tobacco type: cigarettes packs per day: 1 alcohol intake: never substance use type: denies use current occupational status: disabled Travel in the last 8 weeks?: None household members: spouse housing: house caffeine: No Have you lived/traveled outside [place] in past 30 days?: No Contact w/someone who lives/traveled outside US past 30 days?: No Exposure to someone with infectious disease in past 14 days?: No Do you have a fever (greater than 100.4 F or 38 C)?: No Have you tested positive for COVID-19?: No Exposed to someone with COVID-19 in past 14 days?: No Do you have a sore throat?: No Do you have a cough?: No Do you have any weakness?: No Are you experiencing any nausea/vomitting?: No Do you have any diarrhea?: No Are you experiencing any unusual bleeding?: No Do you have any muscle aches/pain?: No Do you have any abdominal pain?: No Are you experiencing loss of taste or smell?: No Other Medical History Have you received the Flu Vaccine for this season: No Have you received the Pneumonia Vaccine: No Review of Systems Review of Systems Review of systems (narrative): Negative *Cardiovascular Comments: Negative *Gastrointestinal Comments: Negative *Genitourinary Comments: Negative *Musculoskeletal Comments: Negative *Neurologic Comments: Negative Meds Home Medications and Allergies Home Medications ?Medication ?Instructions ?Recorded ?Confirmed ?Type cetirizine 10 mg tablet 10 mg PO DAILY PRN Allergy Symptoms 02/06/25 04/10/25 History cholecalciferol (vitamin D3) 25 25 mcg PO DAILY 02/06/25 04/10/25 History mcg (1,000 unit) capsule pyridoxine (vitamin B6) 100 mg 100 mg PO DAILY 02/06/25 04/10/25 History tablet New Prescriptions to Start Prescriptions: Allergies Allergy/AdvReac Type Severity Reaction Status Date / Time codeine Allergy Nausea Verified 04/10/25 12:19 ibuprofen (From Motrin) Allergy Nausea Verified 04/10/25 12:19 sulfamethoxazole (From Allergy Nausea Verified 04/10/25 12:19 Bactrim) trimethoprim (From Bactrim) Allergy Nausea Verified 04/10/25 12:19 Exam *Routine HEENT Exam Head: Present normocephalic Eye: Present EOMI and PERRL ENT: Present mucous membranes moist *Routine Neck Exam Neck: Present supple *Routine Respiratory Exam Respiratory: Present CTA bilaterally *Routine Cardiovascular Exam Cardiovascular: Present RRR *Routine Abdominal Exam Abdominal: Present soft and normoactive bowel sounds; Absent tenderness *Routine Rectal Exam Rectal:: deferred *Routine Genitalia Exam Genitalia:: deferred *Routine Extremities Exam Extremities: Absent cyanosis, clubbing or edema *Routine Skin Exam Skin: Present warm; Absent rash *Routine Neurological Exam Neurological: Present alert and oriented X3 Assessment and Plan *Assessment and plan (1) Epigastric pain: Status: Acute Category: Medical Code(s): R10.13 - Epigastric pain (2) Early satiety: Status: Acute Category: Medical Code(s): R68.81 - Early satiety (3) Loss of appetite: Status: Acute Category: Medical Code(s): R63.0 - Anorexia (4) Weight loss: Status: Acute Category: Medical Code(s): R63.4 - Abnormal weight loss (5) Bloating: Status: Acute Category: Medical Code(s): R14.0 - Abdominal distension (gaseous) (6) Belching: Status: Acute Category: Medical Code(s): R14.2 - Eructation (7) Acid reflux: Status: Acute Category: Medical Code(s): K21.9 - Gastro-esophageal reflux disease without esophagitis Plan A/P: 1. Epigastric abdominal pain with early satiety bloating, belching, reflux, loss of appetite and weight loss is the preprocedural diagnosis. The patient will be anesthetized/sedated using MAC sedation. The patient has been seen and examined. Cardiac and lung assessment prior to the examination is stable. Proceed with planned diagnostic EGD.
[2025-04-09 11:24] VITALS: BMI 24.4
--- NOTE | 2025-04-10 06:58 | HMH.PROCNOTE ---
[facility] Procedure Note Date: 04/10/25 Time: 13:44 Procedure Note:: Upper Endoscopy Procedure Report: Esophagogastroduodenoscopy with cold biopsies Endoscopost: Castillo Hart II, MD Referring Physician: COREY Nagel, [address] [place] [address].0 [place] [address] Date of Procedure: April 10, 2025 Equipment: Olympus GIF-1100 standard upper endoscope Sedation: MAC sedation Indications: Mrs. Powers is a 69-year-old female who is here for diagnostic EGD. She reports epigastric abdominal pain and left lower quadrant abdominal pain, belching, bloating, early satiety and loss of appetite. She has had some nausea. She also has chronic constipation. She has lost around 50 pounds. A lot of this has occurred over the last several years. 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 She was transferred to the [facility] who repeated imaging and this showed widely patent SMA and celiac artery. She had a negative EGD and colonoscopy. Her family did take her to [facility] where she was admitted with vomiting and severe weight loss and she had a gastrostomy tube placed. Her last endoscopy and colonoscopy may have been in [place] around 3 years ago. The examination is deemed medically necessary for diagnostic EGD. Procedure: Prior to the procedure, a history and physical exam was performed, and patient's medications and allergies were reviewed. The risks, benefits and alternatives of the sedation and procedure were discussed with the patient. All questions were answered and informed consent was obtained. The patient was brought to the procedure room. Patient identification and proposed procedure were verified by the physician and the nurse. The patient was placed in a left lateral decubitus position and the scope was passed under direct vision. Throughout the procedure, the patient's blood pressure, pulse, and oxygen saturations were monitored continuously. The upper GI endoscopy was accomplished without difficulty. The patient tolerated the procedure well. Findings: The scope was passed directly into the upper esophagus and advanced to the third portion of the duodenum. The post bulbar duodenum, ampulla and duodenal bulb were normal with normal mucosa and conniventes. 2 cold biopsies were taken from the second portion of the duodenum for the disaccharidase assay. The scope was withdrawn through a normal duodenal bulb and pylorus into the stomach. There was some mild linear antral gastropathy. The body and fundus were grossly normal. There was no blanching of the mucosa. Cold biopsies were taken at the incisura. Upon retroflexion there was a small 2 cm hiatal hernia (sliding). The scope was then withdrawn into the esophagus. There was a single tongue of salmon-colored mucosa that was biopsied to rule out intestinal metaplasia. There was no evidence of reflux esophagitis or Mai's. There appeared to be a very faint esophageal varix (1 column). The remainder of the esophageal mucosa was normal. Impression: 1. Nonerosive GERD with small 2 cm sliding hiatal hernia 2. Mild linear antral gastropathy Plan: I will follow-up the biopsies and disaccharidase assay. We will discuss treatment options.
[2025-04-10 12:27] VITALS: BP 142/85; PULSE 64; RESP 18; TEMP 36.5; O2SAT 99
[2025-04-10] MEDS: LACTATED RINGERS 1000ML 1,000 ML 50 ML IV (12:37)
--- NOTE | 2025-04-10 12:51 | EXP.ANES.CKL ---
[facility] Disclaimer: The information contained in this section may have been updated after the patient was seen, as this information can be updated by other users. Medical History Leaky heart valve Surgical History History of cholecystectomy Family History Other No significant family history Social History (Updated 04/10/25 @ 12:26 by Raisa Herrera RN) Smoking Status: Current every day smoker tobacco type: cigarettes packs per day: 1 alcohol intake: never substance use type: denies use current occupational status: disabled Travel in the last 8 weeks?: None household members: spouse housing: house caffeine: No [facility] Anesthesia Checklist Patient Identification Patient Identification: Arm Band and Verbal (Name & ) Structural Data Admitted From: Home Planned Operative Procedure/s: EGD Verified Documents: Surgical Consent NPO Status Verified Time NPO: 00:00 Chart Verification Results Verified: None Additional verifications Anesthesia Reactions: No Airway Assessment Mallampati Score:: Class II C-Spine Mobility Assessed: Yes TMJ Mobility Assessed: Yes Dentition: Edentulous Neurological Assessment Level of Consciousness: Awake, Alert and Appropriate Hx Seizures: No Numbness or tingling in extremities: No Anesthesia Plan Anesthesia Risk discussed: Yes Anesthesia Plan: Verified ASA Class: III Anesthesia Type: MAC
[2025-04-10 13:45] VITALS: BP 122/66; PULSE 82; RESP 18; TEMP 36.3; O2SAT 97
[2025-04-10 13:55] VITALS: BP 101/59; PULSE 72; O2SAT 97
[2025-04-10 14:05] VITALS: BP 113/59; PULSE 69; O2SAT 97
[2025-04-10 14:15] VITALS: BP 118/60; PULSE 70; O2SAT 98
[2025-04-15 14:11] LABS: Interpretation Notes (.); Lactase 12.67 (>/= 14.0); Maltase 163.99 (>/= 110.0); Palatinase 11.75 (>/= 8.5); Reference Notes (.); Sucrase 45.6 (>/= 25.0)
== END 2025-04-10 14:15 | disposition home or self-care (01) ==
PROVIDERS: Visit Provider Internal Medicine Gastroenterology
PROC: 0DJ08ZZ Inspection of Upper Intestinal Tract, Via Natural or Artificial Opening Endoscopic (ICD-10-PCS; CPT 43239; principal; 2025-04-10 13:00)
DX: K21.00 Gastro-esophageal reflux disease with esophagitis, without bleeding (principal); K31.89 Other diseases of stomach and duodenum; K44.9 Diaphragmatic hernia without obstruction or gangrene; F17.210 Nicotine dependence, cigarettes, uncomplicated; Z88.5 Allergy status to narcotic agent; Z88.2 Allergy status to sulfonamides; Z90.49 Acquired absence of other specified parts of digestive tract; Z88.6 Allergy status to analgesic agent
CPT/HCPCS: 43239; 82657; 88305; J2003; J2704; J7120